=== PATIENT | male | born 2000 | race Caucasian/White ===

== ENCOUNTER 2018-04-11 18:52 | Emergency (ER) | payer OTHER ==
[~2018-04-11] VITALS: Ht 182.9 cm; Wt 75.0 kg
[2018-04-11 21:05] LABS: HEMATOCRIT 44.5 % (42.0-52.0); HEMOGLOBIN 15.1 g/dl (13.5-17.5); MEAN CORPUSCULAR HEMOGLOBIN 28.4 pg (27.0-33.0); MEAN CORPUSCULAR HGB CONC 33.9 g/dl (32.0-36.5); MEAN CORPUSCULAR VOLUME 83.8 fl (80.0-96.0); PLATELET COUNT, AUTOMATED 271 10^3/uL (150-450); RED BLOOD COUNT 5.31 10^6/uL (4.30-6.10); WHITE BLOOD COUNT 8.4 10^3/uL (4.0-10.0)
[2018-04-11 21:24] LABS: AMPHETAMINES LEVEL URINE NEGATIVE (NEGATIVE); BARBITURATES URINE NEGATIVE (NEGATIVE); BENZODIAZEPINES URINE NEGATIVE (NEGATIVE); CANNABINOIDS URINE NEGATIVE (NEGATIVE); COCAINE METABOLITE URINE NEGATIVE (NEGATIVE); METHADONE URINE NEGATIVE (NEGATIVE); OPIATES URINE NEGATIVE (NEGATIVE); PHENCYCLIDINE URINE NEGATIVE (NEGATIVE)
[2018-04-11 21:40] LABS: ACETAMINOPHEN LEVEL < 2.0 UG/ML (10.0-30.0); ALBUMIN 4.1 GM/DL (3.2-5.2); ALT/SGPT 26 U/L (12-78); BILIRUBIN,DIRECT 0.2 MG/DL (0.0-0.2); BILIRUBIN,TOTAL 0.9 MG/DL (0.2-1.0); BLOOD UREA NITROGEN 15 MG/DL (7-18); CALCIUM LEVEL 8.4 MG/DL (8.5-10.1); CARBON DIOXIDE LEVEL 25 MEQ/L (21-32); CHLORIDE LEVEL 106 MEQ/L (98-107); CREATININE FOR GFR 1.16 MG/DL (0.70-1.30); ETHYL ALCOHOL (ETHANOL) < 0.003 % (0.000-0.010); GLUCOSE, FASTING 85 MG/DL (70-100); POTASSIUM SERUM 4.1 MEQ/L (3.5-5.1); SALICYLATE LEVEL < 1.7 MG/DL (5.0-30.0); SODIUM LEVEL 139 MEQ/L (136-145); THYROID STIMULATING HORMONE 0.876 uIU/ML (0.463-3.98); TOTAL PROTEIN 7.1 GM/DL (6.4-8.2)
[2018-04-11] MEDS ORDERED: DAYQ1LIQ PO (23:12)
[2018-04-12 01:15] VITALS: BP 117/58
--- NOTE | 2018-04-12 06:43 | ECGEPIP ---
Stationary ECG Study [facility] - ED Test Date: 2018-04-11 Pat Name: WILLIAM NAGY Department: Room: - Gender: M Gang Miner: : 2000 Requested By: FREDDY CORONA Order Number: [id number] Reading MD: Fransisco Sharp Measurements Intervals [place] Rate: 51 P: 63 MI: 160 QRS: 73 QRSD: 97 T: 58 QT: 414 QTc: 384 Interpretive Statements SINUS BRADYCARDIA NSTTW ABNORMALITIES BENIGN EARLY REPOLARIZATION NO PRIORS FOR COMPARISON Electronically Signed On 04-12-2018 6:43:23 EST by Fransisco Sharp
== END 2018-04-12 01:24 ==
LOC: M ED 18:52
DX: F32.9 Major depressive disorder, single episode, unspecified (principal); R45.851 Suicidal ideations
CPT/HCPCS: 36415; 80048; 80076; 80307; 84443; 85027; 93005; 99284; G0480

== ENCOUNTER 2018-05-06 13:13 | Emergency (ER) | payer OTHER ==
[~2018-05-06] VITALS: Ht 182.9 cm; Wt 75.0 kg
[~2018-05-06 13:13] MED LIST: DAYQ1LIQ PO
[2018-05-06] MEDS ORDERED: MOBI15TA PO (13:19)
[2018-05-06 15:42] LABS: BASO # 0.1 10^3/uL (0.0-0.2); BASO % 0.7 % (0.0-1.0); EOS # 0.2 10^3/uL (0.0-0.50); HEMOGLOBIN 15.5 g/dl (13.5-17.5); LYMPH # 1.8 10^3/uL (1.5-6.5); LYMPH % 21.3 % (24.0-44.0); MEAN CORPUSCULAR HEMOGLOBIN 28.2 pg (27.0-33.0); MEAN CORPUSCULAR VOLUME 85.6 fl (80.0-96.0); MONO % 11.7 % (0.0-5.0); NEUTROPHILS # 5.3 10^3/uL (1.8-7.7); NEUTROPHILS % 63.1 % (36.0-66.0); PLATELET COUNT, AUTOMATED 317 10^3/uL (150-450); RED BLOOD COUNT 5.49 10^6/uL (4.30-6.10); WHITE BLOOD COUNT 8.4 10^3/uL (4.0-10.0)
[2018-05-06] MEDS ORDERED: IBUP-1022 PO (15:56)
[2018-05-06] MEDS ORDERED: LIDVISCBTL SSP (15:56)
[2018-05-06 16:01] VITALS: BP 157/77
[2018-05-06 16:13] LABS: ALBUMIN 4.3 GM/DL (3.2-5.2); ALT/SGPT 23 U/L (12-78); BILIRUBIN,TOTAL 0.3 MG/DL (0.2-1.0); BLOOD UREA NITROGEN 12 MG/DL (7-18); CALCIUM LEVEL 8.9 MG/DL (8.5-10.1); CARBON DIOXIDE LEVEL 27 MEQ/L (21-32); CHLORIDE LEVEL 108 MEQ/L (98-107); GLUCOSE, FASTING 99 MG/DL (70-100); MONO REFLEX EBV COMP NEGATIVE (NEGATIVE); POTASSIUM SERUM 4.5 MEQ/L (3.5-5.1); SODIUM LEVEL 141 MEQ/L (136-145); TOTAL PROTEIN 7.5 GM/DL (6.4-8.2)
[2018-05-10 00:06] LABS: EBV VIRAL CAPSID AG IgM <36.0 U/mL (0.0-35.9)
== END 2018-05-06 16:05 | disposition home or self-care (01) ==
LOC: M ED 13:13
DX: J02.8 Acute pharyngitis due to other specified organisms (principal); F17.200 Nicotine dependence, unspecified, uncomplicated; Z79.899 Other long term (current) drug therapy

== ENCOUNTER 2018-07-17 17:41 | Emergency (ER) | payer OTHER ==
[~2018-07-17] VITALS: Ht 182.9 cm; Wt 77.5 kg
[2018-07-17 17:41] VITALS: BP 139/98
[~2018-07-17 17:41] MED LIST changes: +IBUP-1022 PO; +LIDVISCBTL SSP; +MOBI15TA PO
[2018-07-17] MEDS ORDERED: CELEBREX (17:48)
[2018-07-17] MEDS ORDERED: CYCL10TA PO (17:48)
[2018-07-17 18:35] LABS: HEMATOCRIT 48.3 % (42.0-52.0); HEMOGLOBIN 16.4 g/dl (13.5-17.5); MEAN CORPUSCULAR HEMOGLOBIN 28.3 pg (27.0-33.0); MEAN CORPUSCULAR VOLUME 83.3 fl (80.0-96.0); PLATELET COUNT, AUTOMATED 349 10^3/uL (150-450); WHITE BLOOD COUNT 11.7 10^3/uL (4.0-10.0)
[2018-07-17 19:28] LABS: ACETAMINOPHEN LEVEL < 2.0 UG/ML (10.0-30.0); ALBUMIN 4.6 GM/DL (3.2-5.2); ALT/SGPT 23 U/L (12-78); BILIRUBIN,DIRECT 0.3 MG/DL (0.0-0.2); BILIRUBIN,TOTAL 1.2 MG/DL (0.2-1.0); BLOOD UREA NITROGEN 19 MG/DL (7-18); CARBON DIOXIDE LEVEL 28 MEQ/L (21-32); CHLORIDE LEVEL 100 MEQ/L (98-107); CREATININE FOR GFR 1.14 MG/DL (0.70-1.30); ETHYL ALCOHOL (ETHANOL) < 0.003 % (0.000-0.010); GLUCOSE, FASTING 90 MG/DL (70-100); POTASSIUM SERUM 3.9 MEQ/L (3.5-5.1); SALICYLATE LEVEL < 1.7 MG/DL (5.0-30.0); SODIUM LEVEL 139 MEQ/L (136-145); THYROID STIMULATING HORMONE 0.878 uIU/ML (0.463-3.98); TOTAL PROTEIN 8.3 GM/DL (6.4-8.2)
[2018-07-17 19:41] LABS: AMPHETAMINES LEVEL URINE NEGATIVE (NEGATIVE); BARBITURATES URINE NEGATIVE (NEGATIVE); BENZODIAZEPINES URINE NEGATIVE (NEGATIVE); CANNABINOIDS URINE POSITIVE (NEGATIVE); COCAINE METABOLITE URINE NEGATIVE (NEGATIVE); METHADONE URINE NEGATIVE (NEGATIVE); OPIATES URINE NEGATIVE (NEGATIVE); PHENCYCLIDINE URINE NEGATIVE (NEGATIVE)
[2018-07-18] MEDS ORDERED: SOMA250T PO (11:42)
== END 2018-07-17 19:37 | disposition home or self-care (01) ==
LOC: M ED 17:41
DX: F43.0 Acute stress reaction (principal)
CPT/HCPCS: 80048; 80076; 80307; 84443; 85027; 99284; G0480

== ENCOUNTER 2018-07-18 07:03 | Emergency (ER) | payer OTHER ==
[~2018-07-18] VITALS: Ht 185.4 cm; Wt 75.0 kg
[~2018-07-18 07:03] MED LIST changes: +CELEBREX; +CYCL10TA PO
[2018-07-18] MEDS ORDERED: KETAMINE IV ONE (07:30)
[2018-07-18] MEDS ORDERED: DILUENT IV ONE (07:30)
[2018-07-18] MEDS ORDERED: LIDOCAINE 5% (LIDODERM) PATCH TD ONE (07:30)
[2018-07-18] MEDS ORDERED: NACL IV ONE (07:30)
[2018-07-18 07:59] LABS: BASO % 0.5 % (0.0-1.0); EOS # 0.1 10^3/uL (0.0-0.50); EOS % 1.1 % (0.0-3.0); HEMATOCRIT 44.9 % (42.0-52.0); HEMOGLOBIN 15.5 g/dl (13.5-17.5); LYMPH # 2.9 10^3/uL (1.5-6.5); MEAN CORPUSCULAR HEMOGLOBIN 27.9 pg (27.0-33.0); MEAN CORPUSCULAR HGB CONC 34.5 g/dl (32.0-36.5); MEAN CORPUSCULAR VOLUME 80.8 fl (80.0-96.0); MONO % 11.3 % (0.0-5.0); NEUTROPHILS # 4.7 10^3/uL (1.8-7.7); NEUTROPHILS % 53.2 % (36.0-66.0); PLATELET COUNT, AUTOMATED 311 10^3/uL (150-450); RED BLOOD COUNT 5.56 10^6/uL (4.30-6.10); WHITE BLOOD COUNT 8.8 10^3/uL (4.0-10.0)
[2018-07-18 08:21] LABS: BLOOD UREA NITROGEN 18 MG/DL (7-18); CALCIUM LEVEL 9.8 MG/DL (8.5-10.1); CARBON DIOXIDE LEVEL 23 MEQ/L (21-32); CHLORIDE LEVEL 106 MEQ/L (98-107); CREATININE FOR GFR 1.33 MG/DL (0.70-1.30); GLUCOSE, FASTING 95 MG/DL (70-100); POTASSIUM SERUM 3.8 MEQ/L (3.5-5.1); SODIUM LEVEL 140 MEQ/L (136-145)
[2018-07-18] MEDS ORDERED: MORPHINE 4 MG/ML 1ML VIAL/SYRINGE (J2270) IV ONE (08:30)
[2018-07-18 08:35] LABS: ERYTHROCYTE SEDIMENTATION RATE 3 mm/hr (0-15)
[2018-07-18] MEDS ORDERED: PROHANCE 279.3MG/ML 15ML VIAL (A9576) As Ordered ONE (09:00)
--- NOTE | 2018-07-18 10:08 | REP ---
MR LUMBAR SPINE WITHOUT AND WITH CONTRAST: HISTORY: Back pain and right leg weakness. CONTRAST: ProHance 15 mL. Decreased signal intensity on T2-weighted images is present in the L5-1 intervertebral discs. This represents disc degeneration. There is no disc bulge or herniation at the L1-2 through L4-5 levels. The nerves exit the neural foramina without compression. A diffuse disc bulge is present at the L5-S1 level. This abuts the thecal sac. There is hypertrophy of the right posterior articulating facets. The L5 nerves exit the neural foramina without compression. The conus medullaris is normal in appearance terminating at the level of the T12-L1 intervertebral disc . Normal signal intensity is present in the lumbar vertebral bodies. IMPRESSION: Diffuse disc bulges at the L5-S1 level. This abuts the thecal sac. Electronically Signed by Patrick Condon MD 07/18/2018 10:24 A
[2018-07-18] MEDS ORDERED: KETOROLAC 30 MG/ML VIAL (J1885) IV ONE (10:30)
[2018-07-18] MEDS ORDERED: METHOCARBAMOL 500 MG TAB PO ONE (10:30)
[2018-07-18] MEDS ORDERED: SOMA250T PO (11:42)
[2018-07-18 11:54] VITALS: BP 130/75
[2018-07-18] MEDS ORDERED: **NOTE PATIENT COMMENT** MISC XX SCH (21:00)
--- NOTE | 2018-07-19 16:58 | ED PDOC ---
Post-Departure Follow-Up ft maren duncan faxed formal report of mri ls spine for fu Akanksha Celestin MD July 19, 2018 16:58
== END 2018-07-18 11:57 | disposition home or self-care (01) ==
LOC: M ED 07:03
DX: M54.41 Lumbago with sciatica, right side (principal); M54.42 Lumbago with sciatica, left side; F17.210 Nicotine dependence, cigarettes, uncomplicated
CPT/HCPCS: 72158; 80048; 85025; 85652; 86140; 96374; 96375; 99284; A9576; J1885; J2270

== ENCOUNTER 2018-10-09 16:15 | Emergency (ER) | payer OTHER ==
[~2018-10-09] VITALS: Ht 182.9 cm; Wt 79.0 kg
[~2018-10-09 16:15] MED LIST changes: +SOMA250T PO
[2018-10-09 16:16] VITALS: BP 138/92
== END 2018-10-09 17:15 | disposition left against medical advice (07) ==
LOC: M ED 16:15
DX: Z53.21 Procedure and treatment not carried out due to patient leaving prior to being seen by health care provider (principal)